=== PATIENT | male | born 1955 | race Caucasian/White ===

== ENCOUNTER → 2016-03-25 | Outpatient (CLI) | payer BC ==
--- NOTE | 2016-03-25 12:23 | DIAGNOSTIC IMAGING REPORT ---
BONE SCAN 3 PHASE LIMITED HISTORY: RIGHT KNEE PAIN TECHNIQUE: Immediately and 3 hours following the intravenous administration of 25.1 mCi of technetium 99 M MDP, 3 phase bone scan of the knees was performed. COMPARISON STUDY: None. FINDINGS: There is nearly symmetric three-phase mild periprosthetic uptake of the femoral components of the bilateral knees. The symmetry favors normal postoperative change. Otherwise, no abnormal radiotracer uptake seen within the knees. IMPRESSION: Nearly symmetric mild periprostatic uptake of the bilateral femoral components which favors normal postoperative change. Electronically signed by: Enrico Bhagat M.D. 03/25/2016 12:21 PM Dictated Date/Time: 03/25/2016 12:16 PM
== END | disposition home or self-care (01) ==
LOC: C.NUCL 07:52
DX: T84.038A Mechanical loosening of other internal prosthetic joint, initial encounter (principal); X58.XXXA Exposure to other specified factors, initial encounter